=== PATIENT | female | born 1935 | race Caucasian/White ===

== ENCOUNTER 2018-01-26 05:26 | Inpatient (IN) ==
[2018-01-25 13:07] LABS: Basophils % 0.3 % (0.0-0.8); Eosinophils # 0.1 10*3/uL (0.0-0.87); Hematocrit 42.5 VOL% (35.7-47.0); Hemoglobin 13.3 GM/DL (12.0-16.0); Immature Granulocytes % 0.2 %; Immature Granulocytes Absolute 0.01 #; Lymphocytes # 1.8 10*3/uL (1.4-4.0); Mean Corpuscular HGB Conc 31.3 GM/DL (32-36); Mean Corpuscular Hemoglobin 31 PG (27-34); Mean Corpuscular Volume 99.5 FL (87-102); Mean Platelet Volume 9.4 FL (9.6-12.0); Monocytes # 0.6 10*3/uL (0.11-0.8); Monocytes % 9.4 % (1.7-12.7); Neutrophils # 3.5 10*3/uL (1.4-7.4); Neutrophils % 59.1 % (38.7-73.9); Platelet Count 192 T/CUMM (130-400); Red Blood Count 4.27 MC/CUMM (3.8-5.5); Red Cell Distribution Width 12.5 % (9.3-17.3)
[2018-01-25 13:32] LABS: Calcium 8.7 MG/DL (8.5-10.1); Osmolality,Calculated 286.8 MOS/KG (273-304); Potassium 3.9 MMOL/L (3.5-5.1)
[2018-01-25 14:05] LABS: Apearance,Urine CLEAR (Clear); Bacteria,Urine Occasional /HPF (Few); Bilirubin,Urine Negative (Negative); Blood, Urine Negative (Negative); Calcium Oxalate Crystals,Urine Few /HPF (Few); Glucose,Urine (UA) Negative (Negative); Hyaline Casts,Urine 3 /LPF (0-3); Ketones,Urine Negative (Negative); Mucus,Urine Few /LPF (Occasional); Nitrite,Urine Negative (Negative); Protein,Urine Negative; RBC,Urine 1 /HPF (0-4); Squamous Epithelial Cell,Urine Occasional /HPF (0-10); Urine Urobilinogen < 2.0 EU/DL (0.2-1.0); WBC,Urine 1 /HPF (0-6)
[2018-01-25 14:06] LABS: Urine Color Dark yellow (Yellow)
[2018-01-26] MEDS ORDERED: ceFAZolin 1,000 MG in SYRINGE 1 EACH IV ONE (06:00)
[2018-01-26] MEDS ORDERED: ceFAZolin 1,000 MG VIAL ONE (06:05)
[2018-01-26] MEDS ORDERED: ROPIVACAINE 0.5% 30 ML VIAL ONE ×3 (07:13→13:21)
[2018-01-26] MEDS ORDERED: LACTATED RINGERS 1,000 ML IV SCH (07:30)
[2018-01-26] MEDS ORDERED: KETOROLAC 15 MG/1 ML VIAL IV PRN (08:07)
[2018-01-26] MEDS ORDERED: ONDANSETRON 4 MG/2 ML VIAL IV PRN (08:07)
[2018-01-26] MEDS ORDERED: MAGNESIUM HYDROXIDE SUSP 30 ML UDCUP PO PRN (08:07)
[2018-01-26] MEDS ORDERED: oxyCODONE IR 5 MG TABLET PO PRN ×2 (08:07)
[2018-01-26] MEDS ORDERED: MORPHINE 4 MG/1 ML VIAL IV PRN ×2 (08:07)
[2018-01-26] MEDS ORDERED: NON-FORMULARY MEDICATION (Biotin [Biotin] 1,000 MCG) PO SCH (09:00)
[2018-01-26] MEDS ORDERED: BACITRACIN OINT 0.9 GM PACK TOP ONE (09:33)
[2018-01-26] MEDS ORDERED: ONDANSETRON 4 MG/2 ML VIAL ONE (10:15)
[2018-01-26] MEDS ORDERED: fentaNYL 100 MCG/2 ML VIAL ONE (10:15)
[2018-01-26] MEDS ORDERED: DEXAMETHASONE 10 MG/1 ML VIAL ONE (10:15)
[2018-01-26] MEDS ORDERED: ePHEDrine 50 MG/ML AMP ONE (10:15)
[2018-01-26] MEDS ORDERED: SEVOFLURANE 1 UNIT/15 MINUTE INH ONE (10:15)
[2018-01-26] MEDS ORDERED: PROPOFOL 200 MG/20 ML VIAL IV ONE (10:15)
[2018-01-26] MEDS ORDERED: KETOROLAC 30 MG/1 ML VIAL ONE (10:16)
[2018-01-26] MEDS ORDERED: ACETAMINOPHEN 1,000 MG/100 ML VIAL IV ONE (10:16)
[2018-01-26] MEDS ORDERED: GLYCOPYRROLATE 0.4 MG/2 ML VIAL ONE (10:16)
[2018-01-26] MEDS ORDERED: ALBUTEROL 2.5 MG/3 ML NEB RESP TX PRN (11:00)
[2018-01-26] MEDS: BISOPROLOL 5 MG TABLET PO SCH (11:16)
[2018-01-26] MEDS ORDERED: INFLUENZA VIRUS VACCINE 0.5 ML SYRINGE IM ONE (12:33)
[2018-01-26] MEDS: CALCIUM (CARBONATE)/VITAMIN D 600 MG-400 UNIT TABLET PO SCH (16:37)
[2018-01-26] MEDS: ASPIRIN EC 81 MG TABLET PO SCH (16:37)
[2018-01-26] MEDS: MULTIVITAMIN (CENTRUM) TABLET PO SCH (16:37)
[2018-01-26] MEDS: VITAMIN E 400 UNIT CAPSULE PO SCH (16:38)
[2018-01-26] MEDS: ESTRADIOL 1 MG TABLET PO SCH (16:38)
[2018-01-26] MEDS: MONTELUKAST 10 MG TABLET PO SCH (16:38)
[2018-01-26] MEDS: CYANOCOBALAMIN 500 MCG TABLET PO SCH (16:38)
[2018-01-26] MEDS: MEMANTINE 10 MG TABLET PO SCH ×2 (16:38→21:33)
[2018-01-26] MEDS: ASCORBIC ACID 500 MG TABLET PO SCH ×2 (16:38→21:33)
[2018-01-26] MEDS: PANTOPRAZOLE 40 MG TABLET PO SCH (16:38)
[2018-01-26] MEDS: ceFAZolin 1,000 MG in SYRINGE 1 EACH IV SCH ×2 (16:47→21:45)
[2018-01-26] MEDS: ACETAMINOPHEN 500 MG TABLET PO SCH ×2 (16:47→23:23)
[2018-01-26] MEDS: LACTATED RINGERS 1,000 ML IV SCH (16:57)
[2018-01-26] MEDS ORDERED: DONEPEZIL 10 MG TABLET PO SCH (21:00)
[2018-01-27] MEDS: LACTATED RINGERS 1,000 ML IV SCH ×3 (00:50→05:00)
[2018-01-27] MEDS: ACETAMINOPHEN 500 MG TABLET PO SCH ×2 (05:20→11:44)
[2018-01-27 05:32] LABS: Basophils % 0.1 % (0.0-0.8); Hemoglobin 12.4 GM/DL (12.0-16.0); Immature Granulocytes % 0.5 %; Immature Granulocytes Absolute 0.05 #; Lymphocytes # 1.4 10*3/uL (1.4-4.0); Lymphocytes % 13.6 % (21.3-54.2); Mean Corpuscular HGB Conc 31.8 GM/DL (32-36); Mean Corpuscular Hemoglobin 31 PG (27-34); Mean Corpuscular Volume 97.7 FL (87-102); Mean Platelet Volume 10.2 FL (9.6-12.0); Monocytes # 1.2 10*3/uL (0.11-0.8); Monocytes % 11.3 % (1.7-12.7); Neutrophils # 7.6 10*3/uL (1.4-7.4); Neutrophils % 74.5 % (38.7-73.9); Platelet Count 172 T/CUMM (130-400); Red Blood Count 3.99 MC/CUMM (3.8-5.5); Red Cell Distribution Width 12.2 % (9.3-17.3); White Blood Count 10.2 T/CUMM (4-12)
[2018-01-27 05:49] LABS: Calcium 8.5 MG/DL (8.5-10.1); Osmolality,Calculated 288.6 MOS/KG (273-304)
[2018-01-27 08:00] VITALS: BP 142/76
[2018-01-27] MEDS: MONTELUKAST 10 MG TABLET PO SCH (09:08)
[2018-01-27] MEDS: ASPIRIN EC 81 MG TABLET PO SCH (09:08)
[2018-01-27] MEDS: ASCORBIC ACID 500 MG TABLET PO SCH (09:08)
[2018-01-27] MEDS: PANTOPRAZOLE 40 MG TABLET PO SCH (09:08)
[2018-01-27] MEDS: VITAMIN E 400 UNIT CAPSULE PO SCH (09:10)
[2018-01-27] MEDS: CYANOCOBALAMIN 500 MCG TABLET PO SCH (09:10)
[2018-01-27] MEDS: ESTRADIOL 1 MG TABLET PO SCH (09:10)
[2018-01-27] MEDS: MULTIVITAMIN (CENTRUM) TABLET PO SCH (09:11)
[2018-01-27] MEDS: CALCIUM (CARBONATE)/VITAMIN D 600 MG-400 UNIT TABLET PO SCH (09:11)
[2018-01-27] MEDS: BISOPROLOL 5 MG TABLET PO SCH (09:12)
[2018-01-27] MEDS: MEMANTINE 10 MG TABLET PO SCH (09:12)
== END 2018-01-27 10:40 | disposition home or self-care (01) | DRG 493 ==
LOC: N.SDSINP 05:26 → N.OR 05:26 → N.SDSINP 08:07 → N.3E 09:47
PROVIDERS: ADMIT Orthopaedic Surgery; ATTEND Orthopaedic Surgery